=== PATIENT | male | born 1965 | race Two or more races ===

== ENCOUNTER 2024-11-15 07:45 | Day surgery (SDC) | payer MEDICAID ==
[2024-11-15] VITALS (7 sets, daily range): BP systolic 96–135; BP diastolic 56–87; PULSE 53–64; RESP 14–20; TEMP 97.9; O2SAT 94–99
[~2024-11-15] VITALS: Ht 195.6 cm; Wt 112.0 kg
[2024-11-15] MEDS: MIDAZOLAM HCL 2MG/2ML 2ml VIAL (1mg/ml) ONE (10:17)
[2024-11-15] MEDS: fentaNYL CITRATE 100 MCG/2 ML VL ONE (10:17)
[2024-11-15] MEDS: VERAPAMIL 2.5MG/ML INJ 2ML VIAL IV ONE (10:17)
[2024-11-15] MEDS: ANGIOMAX 250 MG VIAL IV ONE (10:17)
[2024-11-15] MEDS: IODIXANOL 320MG/ML 100ML BTL IV ONE (10:18)
[2024-11-15] MEDS: HEPARIN SODIUM (PORCINE) 5000 UNITS/ML 1ML VIAL ONE (10:18)
[2024-11-15] MEDS: SODIUM CHL 0.9% 0 ML ONE (10:18)
[2024-11-15] MEDS: LIDOCAINE 2%HCL (LOCAL ANESTH.) INJ 20ML MDV ONE (10:18)
[2024-11-15] MEDS: NITROGLYCERIN 50MG/250ML 250 ML IV ONE (10:21)
--- NOTE | 2024-11-15 11:45 | DVHOP2 ---
Operative Report - 2 Report Details Date: 11/15/24 Preop Diagnosis: Chest pain Postop Diagnosis: Mild cardiomyopathy Surgeon: Niranjan Ramirez MD Anesthesiologist: Conscious sedation Anesthesia: Mac, Local Consent: The patient was informed of the risks and benefits of the procedure. These include but are not limited to complications of anesthesia, postoperative infection, incomplete relief of symptoms, recurrence of symptoms, damage to blood vessels, nerves and tendons, deep venous thrombosis, pulmonary embolism and possible need for repeat surgery in the future. Complications: No complications Findings: Mild cardiomyopathy Indications for Surgery: Chest pain Name of Procedure Performed Left heart catheterization bilateral cine coronary angiography. Left ventriculography. Procedure Details Procedure Details: Prior local anesthesia with 2% lidocaine to the right wrist and full informed consent obtained patient was prepped and draped in the usual fashion followed by placement of a six Gabonese sheath into the radial artery through which six Gabonese Maty catheters were used to cannulate both right and left coronary ostia and ventriculography. Patient tolerated the procedure well there were no complications. Hemodynamics: Aortic blood pressure was 130/70. End-diastolic pressure was 17. There was no gradient across the aortic valve on pullback. Coronary anatomy RCA is a large vessel sluggish flow throughout. Mild plaquing without critical lesion in his proximal mid and distal segments. PDA and posterolateral branches are normal. Left main is large and normal. Left anterior descending is a large vessel it is normal in its proximal mid and distal segments however there was sluggish flow throughout the coronaries. The circumflex is large with two marginals free of significant disease. Ventriculography performed in the CHRISTINE projection shows an EF of about 40% with global hypokinesis moderate LV enlargement. Recommendations: Risk factor modification to continue. We will initiate Bystolic at 10 mg daily. Condition Good Disposition Home Date of Service: Nov 15, 2024 Billing Provider: NIRANJAN RAMIREZ Sr., MD Cardiology Common Codes: 27008-TSPRGPF INP/OBS CARE (High) Cardiology Procedure Codes: 52136-VOLY HEART CATH W/INTRA INJ NIRANJAN RAMIREZ Sr., MD Nov 15, 2024 11:45
[2024-11-15] MEDS ORDERED: DUPI1INJ SC (13:04)
[2024-11-15] MEDS ORDERED: SACU1TAB7 PO (13:04)
[2024-11-15] MEDS ORDERED: ROSU40TA81 PO (13:04)
[2024-11-15] MEDS ORDERED: MONT5CHW12 PO (13:04)
[2024-11-15] MEDS ORDERED: PANT40TA2 PO (13:04)
[2024-11-15] MEDS ORDERED: TIRZ5INJ SC (13:04)
== END 2024-11-15 13:30 | disposition home or self-care (01) ==
LOC: CATH 07:45
PROVIDERS: ATTEND Internal Medicine
DX: I42.9 Cardiomyopathy, unspecified (principal); I11.0 Hypertensive heart disease with heart failure; I50.20 Unspecified systolic (congestive) heart failure; E11.649 Type 2 diabetes mellitus with hypoglycemia without coma; J45.909 Unspecified asthma, uncomplicated; E78.2 Mixed hyperlipidemia; M48.07 Spinal stenosis, lumbosacral region; M51.24 Other intervertebral disc displacement, thoracic region; M19.90 Unspecified osteoarthritis, unspecified site; G47.00 Insomnia, unspecified; G89.4 Chronic pain syndrome; K21.9 Gastro-esophageal reflux disease without esophagitis; N52.9 Male erectile dysfunction, unspecified; E66.9 Obesity, unspecified; Z68.32 Body mass index [BMI] 32.0-32.9, adult; Z79.899 Other long term (current) drug therapy; Z87.440 Personal history of urinary (tract) infections; Z87.891 Personal history of nicotine dependence
CPT/HCPCS: 93458; C1887; C1894; J1644; J2250; J3010; J7030; Q9967; 99152

== ENCOUNTER 2025-03-20 08:10 | Day surgery (SDC) | payer MEDICAID ==
[~2025-03-20] VITALS: Ht 195.6 cm; Wt 9.5 kg
[~2025-03-20 08:10] MED LIST: SACU1TAB7 PO
[2025-03-20] MEDS ORDERED: ceFAZolin 2 GM/D5W50ml 50 ML IV ONE (09:22)
[2025-03-20] MEDS ORDERED: BUPIVACAINE HCL 50 ML ONE (12:11)
[2025-03-20] MEDS ORDERED: MEPERIDINE HCL (25 MG/ML) 1ML VIAL ONE ×2 (12:22→12:23)
[2025-03-20] MEDS ORDERED: LIDOCAINE 1% INJ PF 5ML AMP ONE (12:22)
[2025-03-20] MEDS ORDERED: MIDAZOLAM HCL 2MG/2ML 2ml VIAL (1mg/ml) ONE (12:22)
[2025-03-20] MEDS ORDERED: fentaNYL CITRATE 100 MCG/2 ML VL ONE (12:22)
[2025-03-20] MEDS ORDERED: PROPOFOL 10 MG/ML 20 ML IV ONE (12:22)
[2025-03-20] MEDS ORDERED: SODIUM CHLORIDE LOCK 10 ML ONE (12:22)
[2025-03-20] MEDS ORDERED: ONDANSETRON HCL 4 MG/2 ML VIAL ONE (12:22)
[2025-03-20] MEDS ORDERED: KETAMINE 50mg/ML 1ml syringe ONE (12:25)
--- NOTE | 2025-03-20 12:54 | DVHOP2 ---
Operative Report - 2 Report Details Date: 03/20/25 Preop Diagnosis: Left knee medial meniscus tear Postop Diagnosis: Left knee medial meniscus tear Surgeon: Lillie Brandt MD [employer]: Raymond Jacobo Physician [employer] Anesthesiologist: Dr Alvarado Anesthesia: General Implant: Arthrex fiber stitch x2 Consent: The patient was informed of the risks and benefits of the procedure. These include but are not limited to complications of anesthesia, postoperative infection, incomplete relief of symptoms, recurrence of symptoms, damage to blood vessels, nerves and tendons, deep venous thrombosis, pulmonary embolism and possible need for repeat surgery in the future. Complications: None Estimated Blood Loss: Less than 5 mL Indications for Surgery: The patient is a 59-year-old male who presented to the clinic with a history of knee pain. Clinical and radiological evaluation demonstrated meniscus tear. Nonoperative and operative management options were discussed. He had failed no noperative management and surgery in the form of diagnostic arthroscopy, possible meniscus repair versus meniscectomy was discussed with him. Benefits, risks and treatment alternatives were discussed. Specific complications of the surgery such as neurovascular injury, infection, arthrofibrosis, loss of limb or life were discussed. He decided to proceed with the surgical option. Name of Procedure Performed Left knee arthroscopy with medial meniscus repair Procedure Details Procedure Details: The patient was identified in the preoperative holding area and the surgical site was marked. The consent was verified. The patient was brought into the operating room and placed supine on the operating table. General anesthesia was administered. A tourniquet was applied over the proximal thigh. All the bony prominences were appropriately padded. The knee was positioned appropriately. The extremity was now prepped and draped in the usual sterile manner. A timeout was called out to confirm the identity of the patient, the nature of surgery, the site of surgery, the availability of implants and x-rays and allergies to medications. A standard anterolateral portal was established. A 30 degree scope was inserted. A standard anteromedial portal was established, a probe was inserted and the findings are as follows 1. Complex medial meniscus tear 2. Intact ACL and PCL 3. Grade 2 chondromalacia medial compartment cartilage 4. Intact lateral meniscus and lateral compartment cartilage 5. Intact patellofemoral joint with normal bio kinematics The complex medial meniscus tear was probed. This was a flap tear. Partial meniscectomy was initially carried out. The tear extended up to the root but the root was stable. A biter was also used. There was a radial component all the way to the red-white junction and the meniscal capsular junction. I decided to repair this with the help of all-inside device. A fiber Stitch device was used as per manufacture's guidelines. Two crisscross devices were used for [id number] repair of the anterior and the posterior flap. An additional transpatellar portal was made for this as well. This was for the anterior device. Excellent fixation was noted. The tissue was degenerative with poor quality however, it was amenable to repair. Irrigation was given. The skin incisions were closed with 3-0 Monocryl. Sterile dressing was applied. Disposition: Good, the patient was extubated and taken to recovery with any complications Plan: Toe-touch weight-bearing for six weeks. Range of motion from 0-70 degrees for six weeks. After that weightbearing as tolerated, range of motion as tolerated. Condition Good Disposition Home LILLIE BRANDT MD Mar 20, 2025 12:54
[2025-03-20] MEDS: BUPIVACAINE 0.5% INJ 50ML VIAL IJ ONE (13:32)
[2025-03-20 13:42] VITALS: PULSE 69; RESP 12; TEMP 97.6
[2025-03-20 14:12] VITALS: PULSE 68; RESP 12
[2025-03-20] MEDS ORDERED: MORPHINE SULFATE 4 MG/ML SYR/VIAL IV PRN (14:15)
[2025-03-20] MEDS ORDERED: MORPHINE SULFATE INJ 2 MG/ml SYRG IV PRN (14:15)
[2025-03-20] MEDS ORDERED: KETOROLAC TROMETH 30 MG/ML 1ML VIAL IV ONE (14:15)
[2025-03-20] MEDS ORDERED: HYDROmorphone HCL 2 MG/ML VL/or syr IV PRN ×2 (14:15)
[2025-03-20] MEDS ORDERED: METOCLOPRAMIDE HCL 5MG/ml INJ 2ml VIAL IV PRN (14:15)
[2025-03-20 14:25] VITALS: BP 115/73; PULSE 72; O2SAT 96
[2025-03-20 14:42] VITALS: RESP 12
[2025-03-20 14:50] VITALS: RESP 12
== END 2025-03-20 14:50 | disposition home or self-care (01) ==
LOC: SUR 08:10
PROVIDERS: ATTEND Orthopaedic Surgery Sports Medicine
DX: S83.232A Complex tear of medial meniscus, current injury, left knee, initial encounter (principal); I50.9 Heart failure, unspecified; J45.909 Unspecified asthma, uncomplicated; Z79.82 Long term (current) use of aspirin; Z87.891 Personal history of nicotine dependence; Z98.890 Other specified postprocedural states; Z88.1 Allergy status to other antibiotic agents; Z98.41 Cataract extraction status, right eye; Z98.42 Cataract extraction status, left eye; W01.0XXA Fall on same level from slipping, tripping and stumbling without subsequent striking against object, initial encounter; Y93.89 Activity, other specified; Y92.89 Other specified places as the place of occurrence of the external cause; Y99.8 Other external cause status
CPT/HCPCS: 29882; C1713; J0690; J2175; J2250; J2405; J2704; J3010; J3490